=== PATIENT | female | born 1975 | race Caucasian/White ===

== ENCOUNTER 2016-08-14 21:08 | Outpatient (CLI) | payer OTHER | END 2016-08-14 21:09 | disposition home or self-care (01) | DX: R19.5 Other fecal abnormalities (principal) ==

== ENCOUNTER 2016-09-18 07:38 | Outpatient (CLI) | payer OTHER | END 2016-09-18 07:39 | disposition home or self-care (01) | DX: R19.5 Other fecal abnormalities (principal) ==

== ENCOUNTER 2020-10-10 10:09 | Emergency (ER) | payer OTHER ==
[2020-10-10 11:37] LABS: BILIRUBIN,URINE NEGATIVE (NEGATIVE); GLUCOSE, URINE (UA) NEGATIVE (NEGATIVE); KETONES,URINE (UA) NEGATIVE (NEGATIVE); LEUKOCYTE ESTERASE, URINE NEGATIVE (NEGATIVE); NITRITE,URINE NEGATIVE (NEGATIVE); OCCULT BLOOD,URINE NEGATIVE (NEGATIVE); PROTEIN,URINE NEGATIVE (NEGATIVE); UROBILINOGEN,URINE 0.2 (NORMAL) E.U./dL (NORMAL)
[2020-10-10 11:39] LABS: BASOPHILS % (AUTO) 0.1 %; EOSINOPHILS % (AUTO) 0.1 %; HCT - HEMATOCRIT 43.1 % (37.0-47.0); HGB - HEMOGLOBIN 14.3 g/dL (12.0-16.0); LYMPHOCYTES # (AUTO) 1.7 10^3/uL (1.5-3.5); LYMPHOCYTES % (AUTO) 23.3 %; MEAN CORPUSCULAR HEMOGLOBIN 28.1 pg (27.0-31.0); MEAN CORPUSCULAR HGB CONC 33.2 g/dL (32.0-36.0); MEAN CORPUSCULAR VOLUME 84.8 fL (81.0-99.0); MEAN PLATELET VOLUME 9.6 fL (7.9-10.8); MONOCYTES # (AUTO) 0.4 10^3/uL (0.0-1.0); MONOCYTES % (AUTO) 5.3 %; NEUTROPHILS # (AUTO) 5.1 10^3/uL (1.5-6.6); NEUTROPHILS % (AUTO) 70.8 %; PLT - PLATELET COUNT 269 10^3/uL (130-450); RED BLOOD COUNT 5.08 10^6/uL (4.20-5.40); RED CELL DISTRIBUTION WIDTH 12.9 % (12.0-15.0); WHITE BLOOD COUNT 7.2 x10^3/uL (4.8-10.8)
[2020-10-10 11:40] LABS: CLARITY,URINE CLEAR (CLEAR); HCG UR QUAL NEGATIVE
[2020-10-10 11:47] LABS: ALBUMIN 4.9 g/dL (3.2-5.5); ALBUMIN/GLOBULIN RATIO 1.4 (1.0-2.2); BILIRUBIN,TOTAL 0.5 mg/dL (0.2-1.0); CALCIUM 9.6 mg/dL (8.5-10.3); CREATININE 0.8 mg/dL (0.4-1.0); POTASSIUM 3.5 mmol/L (3.5-5.0); TOTAL PROTEIN 8.5 g/dL (6.7-8.2)
--- NOTE | 2020-10-10 13:35 | ED Physician Documentation ---
PD HPI ABD PAIN - Stated complaint Stated Complaint: UPPER ABD PX - Chief complaint Chief Complaint: Abd Pain - History obtained from History obtained from: Patient - Additional information Additional information: Patient is come to the emergency department with chief complaint of upper abdominal pain on and off for the last several days, though she has been noticing it occasionally for about 3 weeks before that. Patient states it feels like a pain and tightness in her epigastric area and spreads a little to the right. She denies any nausea or vomiting. She states that she noticed it became especially bad after she ate a [employer] cheese steak couple nights ago. About an hour later, she noticed that the pain had really ramped up. She denies any new bowel changes, though she has had some loose stools for the last couple of months. Patient denies any family history of gallbladder issues. No personal history of pancreatitis. No known GERD or other abdominal issues. Patient is otherwise fairly healthy. No other complaints at this time. She states that her symptoms actually feel a bit better now. Review of Systems Ten Systems: 10 systems reviewed and negative Constitutional: reports: Reviewed and negative Eyes: reports: Reviewed and negative Ears: reports: Reviewed and negative Nose: reports: Reviewed and negative Throat: reports: Reviewed and negative Cardiac: reports: Reviewed and negative Respiratory: reports: Reviewed and negative GI: reports: Reviewed and negative : reports: Reviewed and negative Skin: reports: Reviewed and negative Musculoskeletal: reports: Reviewed and negative Neurologic: reports: Reviewed and negative Psychiatric: reports: Reviewed and negative Endocrine: reports: Reviewed and negative Immunocompromised: reports: Reviewed and negative PD PAST MEDICAL HISTORY - Past Medical History Past Medical History: Yes Cardiovascular: Hypertension Respiratory: None Neuro: None Endocrine/Autoimmune: None GI: Other [employer]: None : None HEENT: None Psych: Anxiety, Panic attacks Musculoskeletal: None Derm: None Other Past Medical History: IBS - Past Surgical History Past Surgical History: No - Present Medications Home Medications: Ambulatory Orders Medication Instructions Recorded Confirmed LORazepam [Ativan] 1 mg PO DAILY PRN 10/10/20 10/10/20 Metoprolol Succinate [Toprol Xl] 50 mg PO DAILY 10/10/20 10/10/20 Omeprazole Magnesium 20 mg PO DAILY #30 10/10/20 - Allergies Allergies/Adverse Reactions: Allergies Allergy/AdvReac Type Severity Reaction Status Date / Time Sulfa (Sulfonamide Allergy Rash Verified 10/10/20 10:29 Antibiotics) zoloft Allergy Intermediate Rash Uncoded 01/25/13 13:25 - Social History Does the pt smoke?: No Smoking Status: Never smoker Does the pt drink ETOH?: No Does the pt have substance abuse?: No - Immunizations Immunizations are current?: Yes Results - Vitals Vitals: Vital Signs - 24 hr 10/10/20 10/10/20 10/10/20 11:23 13:11 15:05 Temperature 36.7 C Heart Rate 113 H 109 H 116 H Respiratory 12 20 18 Rate Blood Pressure 181/99 H 170/100 H O2 Saturation 100 100 100 Oxygen O2 Source Room air - Labs Labs: Laboratory Tests 10/10/20 10/10/20 10/10/20 10:45 11:25 11:25 WBC 7.2 RBC 5.08 Hgb 14.3 Hct 43.1 MCV 84.8 MCH 28.1 MCHC 33.2 RDW 12.9 Plt Count 269 MPV 9.6 Neut # (Auto) 5.1 Lymph # (Auto) 1.7 [place] # (Auto) 0.4 Eos # (Auto) 0.0 Baso # (Auto) 0.0 Absolute Nucleated RBC 0.00 Nucleated RBC % 0.0 Sodium 135 Potassium 3.5 Chloride 102 Carbon Dioxide 22 Anion Gap 11.0 BUN 13 Creatinine 0.8 Estimated GFR (MDRD) 78 L Glucose 119 H Calcium 9.6 Total Bilirubin 0.5 AST 19 ALT 22 Alkaline Phosphatase 94 Total Protein 8.5 H Albumin 4.9 Globulin 3.6 Albumin/Globulin Ratio 1.4 Lipase 32 Urine Color YELLOW Urine Clarity CLEAR Urine pH 6.0 Ur Specific [place] <=1.005 Urine Protein NEGATIVE Urine Glucose (UA) NEGATIVE Urine Ketones NEGATIVE Urine Occult Blood NEGATIVE Urine Nitrite NEGATIVE Urine Bilirubin NEGATIVE Urine Urobilinogen 0.2 (NORMAL) Ur Leukocyte Esterase NEGATIVE Ur Microscopic Review NOT INDICATED Urine Culture Comments NOT INDICATED Urine HCG, Qual NEGATIVE - Rads (name of study) abd US Radiology: Final report received, EMP read indepedently, See rad report PD MEDICAL DECISION MAKING - ED course Complexity details: reviewed results, re-evaluated patient, considered differential, d/w patient ED course: Pt was evaluated with labs and US of RUQ, which were all unremarkable. I d/w pt that next step in management will be to see PCP and discuss whether EGD should be done. Pt was feeling better after symptomatic tx. We have discussed the usual indications for return. Departure - Departure Disposition: 01 Home, Self Care Clinical Impression: Upper abdominal pain Condition: Stable Instructions: ED Abdominal Pain Unkn Cause Prescriptions: Omeprazole Magnesium 20 mg PO DAILY #30 Comments: Your labs and ultrasound both look good. There is no evidence of any gallstones or inflammation of your gallbladder. As we discussed, the next step will be to follow-up with your primary care physician to discuss the possibility of having an endoscopy done to further evaluate your esophagus, stomach, and first part of your small intestine. Please take the medications prescribed to help reduce any inflammation along that tract. Discharge Date/Time: 10/10/20 15:05
--- NOTE | 2020-10-10 14:48 | Ultrasound Report ---
PROCEDURE: Abdomen Limited INDICATIONS: RUQ pain/nausea TECHNIQUE: Real-time focused scanning was performed of the abdomen, with image documentation. COMPARISON: Ultrasound abdomen 09/18/2016 FINDINGS: The liver is increased in echogenicity with coarse sonographic echotexture compatible with fatty infi ltration. The previously identified hyperechoic lesion within the left hepatic lobe likely representi ng a hemangioma is not discretely well visualized today. There is an indistinct slightly hyperechoic region along the ervin hepatis likely representing focal fatty infiltration. This region measures adrienne roximately 1.5 x 1.0 x 1.8 cm. Gallbladder demonstrates no gallstones, wall thickening, or pericholecystic fluid. No intrahepatic biliary ductal dilatation. The visualized common bile duct measures up to approximate ly 0.4 cm. The pancreas is not well visualized. Right kidney measures up to 9.7 cm. No hydronephrosis. IMPRESSION: 1. No evidence of cholelithiasis or cholecystitis. 2. Increased hepatic echogenicity compatible with steatosis. 3. Previously visualized hyperechoic lesion in the left lobe likely representing a hemangioma is not well seen on the current study which may be due to increased fatty infiltration. Reviewed by: Wale Dubon MD on 10/10/2020 2:46 PM PDT Approved by: Wale Dubon MD on 10/10/2020 2:46 PM PDT Station ID: [id number]
[2020-10-10 15:06] VITALS: BP 170/100
== END 2020-10-10 15:05 | disposition home or self-care (01) ==
LOC: ED 10:09
DX: R10.13 Epigastric pain (principal); R10.11 Right upper quadrant pain; K76.0 Fatty (change of) liver, not elsewhere classified; I10 Essential (primary) hypertension
CPT/HCPCS: 36415; 80053; 81001; 81003; 81025; 83690; 85025; 87086; 99284

== ENCOUNTER 2022-12-08 13:18 | Outpatient (CLI) | payer OTHER ==
--- NOTE | 2022-12-08 14:52 | Ultrasound Report ---
PROCEDURE: Pelvic w/Transvaginal INDICATIONS: DYSMENORRHEA TECHNIQUE: Real-time scanning was performed of the pelvic organs, with image documentation. Additional endovagi nal scanning was necessary due to incomplete visualization of the adnexal and endometrial structures by transabdominal scanning. COMPARISON: None. FINDINGS: Uterus: Uterus is retroverted and normal in size at 7.6 x 4.2 x 5.8 cm. The myometrium is homogeneo us. The endometrium measures 7.6 mm in combined thickness. Intramural fibroid along the anterior, m id uterine segment measuring 3.7 x 2.3 x 3.0 cm. Ovaries: The right ovary measures 3.6 x 2.4 x 2.9 cm, with a calculated ovarian volume of 14 cc. Th e left ovary measures 3.3 x 1.8 x 1.1 cm, with a calculated ovarian volume of 3.5 cc. The ovaries kaufman ve a normal sonographic appearance. Less than 12 follicles can be seen in each ovary. No adnexal ma sses are seen. No cystic lesions measuring greater than 3 cm. Other: No pathologic free abdominal or pelvic fluid. IMPRESSION: Intramural fibroid measuring 3.7 cm. Otherwise unremarkable pelvic ultrasound. Reviewed by: Fuad Scherer on 12/08/2022 2:51 PM PDT Approved by: Fuad Scherer on 12/08/2022 2:51 PM PDT Station ID: [id number]
== END 2022-12-08 13:19 | disposition home or self-care (01) ==
LOC: DI 13:18
PROVIDERS: ATTEND Physician Assistant Medical
DX: N92.0 Excessive and frequent menstruation with regular cycle (principal); D25.1 Intramural leiomyoma of uterus